=== PATIENT | female | born 1950 | race Hispanic/Latino ===

== ENCOUNTER 2019-01-27 11:01 | Outpatient (CLI) | payer MEDICARE, MEDICAID ==
--- NOTE | 2019-01-27 13:01 | BD ---
BONE DENSITOMETRY USING DEXA: HISTORY: Post menopausal screening for osteoporosis. FINDINGS LUMBAR SPINE BMD (g/cm2) T-SCORE Z-SCORE L1 0.811 -1.6 0.1 L2 0.772 -2.3 -0.4 L3 0.824 -2.4 -0.3 L4 0.910 -1.4 0.7 TOTAL 0.826 -1.9 0.0 BMD (g/cm2) T-SCORE Z-SCORE NECK 0.860 0.1 1.5 TOTAL 1.091 1.2 2.2 The ten year fracture risk for a major osteoporotic fracture is 6.4% and for a hip fracture is 0.2%. IMPRESSION: Osteopenia. POS: [facility]
== END 2019-01-27 11:02 | disposition home or self-care (01) ==
LOC: BICMAMMO 11:01
PROVIDERS: ATTEND Family Medicine
DX: Z13.820 Encounter for screening for osteoporosis (principal); M85.80 Other specified disorders of bone density and structure, unspecified site
CPT/HCPCS: 77080

== ENCOUNTER 2025-01-12 05:15 | Observation (INO) | payer MEDICARE, MEDICAID ==
[2025-01-05 09:12] VITALS: BMI 33.0
[2025-01-12] MEDS ORDERED: Lidocaine 1% (PF) 30 ML VIAL ONE ×2 (06:32→07:03)
[2025-01-12] MEDS ORDERED: Ropivacaine 0.5% HCl/PF (150 MG/30 ML VIAL) ONE (06:32)
[2025-01-12] MEDS ORDERED: Vancomycin HCl 1.5 GM VIAL ONE (06:33)
[2025-01-12] MEDS ORDERED: CEFAZOLIN 2 GM VIAL ONE (06:33)
[2025-01-12] MEDS ORDERED: Tranexamic Acid 1,000 MG/10 ML VIAL ONE ×2 (06:33→09:18)
[2025-01-12] MEDS ORDERED: Bupivacaine 0.25% HCL 30 ML VIAL ONE (07:02)
[2025-01-12] MEDS ORDERED: Ondansetron PF 4 MG/2 ML Vial ONE (07:19)
[2025-01-12] MEDS ORDERED: PROPOFOL 20 ML ONE ×2 (07:19→07:39)
[2025-01-12] MEDS ORDERED: Lidocaine 1% PF 5 ML VIAL ONE (07:19)
[2025-01-12] MEDS ORDERED: Ropivacaine 0.2% 550 ML 550 ML NERVE BLCK SCH (07:30)
[2025-01-12] MEDS ORDERED: Ondansetron PF 4 MG/2 ML Vial IVP PRN ×2 (07:30→08:57)
[2025-01-12] MEDS ORDERED: HYDROcodone/Acetaminophen 10/325 mg Tablet PO PRN ×2 (07:30)
[2025-01-12] MEDS ORDERED: fentaNYL PF 100 MCG/2 ML SYRINGE ONE ×2 (07:58→09:18)
[2025-01-12] MEDS ORDERED: diphenhydrAMINE 25 MG CAP PO PRN (08:57)
[2025-01-12] MEDS ORDERED: Acetaminophen 325 MG TAB PO PRN (08:57)
[2025-01-12] MEDS ORDERED: HYDROmorphone 0.5 MG/0.5 ML SYRINGE ONE ×3 (09:26→10:06)
[2025-01-12] MEDS: Aspirin 81 mg Enteric Coated Tablet PO SCH (11:02)
[2025-01-12] MEDS: Ketorolac Tromethamine 30 MG (1 mL) VIAL IVP SCH (13:54)
[2025-01-12] MEDS: FLU (Fluad Triv) 25-26 (65UP)PF 45 MCG/0.5 ML Syringe IM ONE (15:06)
[2025-01-13 06:15] VITALS: TEMP 99.2
[2025-01-13 06:16] VITALS: BP 152/67
[2025-01-13 07:56] LABS: Hematocrit 35.5 % (36.0-47.0); Hemoglobin 11.7 g/dL (12.0-16.0); Mean Corpuscular Hemoglobin 31.0 pg (27.0-31.0); Mean Corpuscular Volume 94.2 fL (78.0-98.0); Platelet Count 218 10x3/uL (130-400); Red Blood Cell (RBC) Count 3.77 mill/uL (4.20-5.40); White Blood Cell (WBC) Count 10.18 10x3/uL (4.8-10.8)
[2025-01-13] MEDS: Senokot S 8.6-50 MG TAB PO SCH (09:12)
[2025-01-13] MEDS: Multivitamin W/ Minerals 1 TAB PO SCH (09:12)
[2025-01-13] MEDS: Ferrous Gluconate 324 MG TAB PO SCH (09:12)
== END 2025-01-13 11:55 | disposition home or self-care (01) ==
LOC: SDC 05:15 → SURG B 12:25 → SDC 12:25 → SURG B 13:40 → SDC 01-13 11:55
PROVIDERS: ADMIT Orthopaedic Surgery; ATTEND Orthopaedic Surgery
PROC: 0SRD0JZ Replacement of Left Knee Joint with Synthetic Substitute, Open Approach (ICD-10-PCS; principal; 2025-01-12)
PROC: 3E0T3BZ Introduction of Anesthetic Agent into Peripheral Nerves and Plexi, Percutaneous Approach (ICD-10-PCS; 2025-01-12)
DX: M17.0 Bilateral primary osteoarthritis of knee (principal); G43.909 Migraine, unspecified, not intractable, without status migrainosus; Z87.59 Personal history of other complications of pregnancy, childbirth and the puerperium; Z90.49 Acquired absence of other specified parts of digestive tract; Z79.899 Other long term (current) drug therapy
CPT/HCPCS: 0055T; 27447; 64448; 36415; 36416; 85027; A4306; C1713; C1776; C1889; J0169; J0665; J1010; J1100; J1171; J1885; J2250; J2704; J2795; J3010; J7030